=== PATIENT | male | born 1970 | race Caucasian/White ===

== ENCOUNTER 2017-01-14 10:19 | Inpatient (IN) | payer OTHER ==
[~2017-01-14] VITALS: Ht 177.8 cm; Wt 111.2 kg
[2017-02-26] VITALS (11 sets, daily range): BP systolic 108–149; BP diastolic 60–86; PULSE 53–83; TEMP 97.9–98.2
[2017-02-26] MEDS ORDERED: ASPIRIN 81M81 MG/TA2 PO (08:16)
[2017-02-26] MEDS ORDERED: LIPITOR20 MG PO (08:18)
[2017-02-26] MEDS ORDERED: VITAMIN C500 MG PO (08:20)
[2017-02-26] MEDS ORDERED: FOLIC ACID0.4 MG PO (08:20)
[2017-02-26] MEDS ORDERED: FERROUS FUMARA324 MG PO (08:21)
[2017-02-27] VITALS (7 sets, daily range): BP systolic 106–9127; BP diastolic 60–70; PULSE 67–86; TEMP 97.6–98.4
[2017-02-27 07:04] LABS: HEMATOCRIT 35.4 % (42.0-52.0)
[2017-02-28 04:00] VITALS: BP 129/62; PULSE 86; TEMP 98.2
[2017-02-28 08:09] VITALS: BP 117/70; PULSE 92; TEMP 98.6
[2017-02-28 12:19] VITALS: BP 122/65; PULSE 78; TEMP 98.4
[2017-02-28 16:06] LABS: PH 5 (5-8); SQUAMOUS EPITHELIAL None Seen /hpf; URINE APPEARANCE Cloudy; URINE BACTERIA None Seen /hpf; URINE BILIRUBIN Negative (NEGATIVE); URINE BLOOD 3+ (NEGATIVE); URINE COLOR Yellow; URINE GLUCOSE Negative (NEGATIVE); URINE KETONE Negative (NEGATIVE); URINE RBC >50 /hpf; URINE UROBILINOGEN Negative (NEGATIVE)
[2017-02-28 16:13] VITALS: BP 146/88; PULSE 88; TEMP 98.4
[2017-02-28 22:42] VITALS: BP 131/68; PULSE 87; TEMP 98.2
[2017-03-01 01:36] VITALS: BP 141/58; PULSE 77; TEMP 98
[2017-03-01 04:56] VITALS: BP 90/73; PULSE 78; TEMP 98.3
[2017-03-01 08:00] VITALS: BP 147/82; PULSE 99; TEMP 98.2
== END 2017-03-01 10:30 | disposition home or self-care (01) | DRG 470 ==
LOC: JCC 02-26 06:56
PROVIDERS: Orthopaedic Surgery; Urology
PROC: 0SR90JA Replacement of Right Hip Joint with Synthetic Substitute, Uncemented, Open Approach (ICD-10-PCS; principal; 2017-02-26 10:30)
DX: M16.7 Other unilateral secondary osteoarthritis of hip (principal); R31.0 Gross hematuria; E78.00 Pure hypercholesterolemia, unspecified; Z86.711 Personal history of pulmonary embolism; F17.220 Nicotine dependence, chewing tobacco, uncomplicated
CPT/HCPCS: A4315; A9284; C1713; C1776; J0690; J1885; J2250; J2270; J2405; J2704; J3010; J7120

== ENCOUNTER → 2017-02-19 | Outpatient (CLI) | payer OTHER ==
[~2017-02-19] MED LIST: ASPIRIN 81M81 MG/TA2 PO; FERROUS FUMARA324 MG PO; FOLIC ACID0.4 MG PO; LIPITOR20 MG PO; VITAMIN C500 MG PO
[2017-02-19 12:26] LABS: HIV 1/2 Antibodies Non-Reactive; HIV-1p24 Antigen Non-Reactive
== END ==
LOC: COL.LAB 10:56
PROVIDERS: Orthopaedic Surgery
DX: Z01.812 Encounter for preprocedural laboratory examination (principal)

== ENCOUNTER 2017-05-01 08:00 | Outpatient (RCR) | payer OTHER | END 2017-05-01 12:00 | LOC: WSPT 08:00 | DX: Z01.818 Encounter for other preprocedural examination (principal); M16.11 Unilateral primary osteoarthritis, right hip; Z96.641 Presence of right artificial hip joint | CPT/HCPCS: G8978-GP; G8979-GP; G8980-GP ==

== ENCOUNTER 2017-07-17 14:05 | Emergency (ER) | payer OTHER ==
[~2017-07-17] VITALS: Ht 175.3 cm; Wt 118.2 kg
[2017-07-17 14:10] VITALS: BP 144/92; TEMP 98
[2017-07-17 15:04] LABS: BASO % 0.7 % (0.0-2.0); EOS # 0.2 (0.0-0.7); EOS % 3.8 % (0-4.0); GRAN # 2.2 (1.4-6.5); GRAN % 49.1 % (42.2-75.2); HEMATOCRIT 44.9 % (42.0-52.0); HEMOGLOBIN 15.6 g/dl (13.5-18.0); LYMPH # 1.2 (1.2-3.4); LYMPH % 27.5 % (20.0-51.0); MEAN CELL VOLUME 91 fl (80.0-100.0); MEAN CORPUSCULAR HEMOGLOBIN 32 pg (27.0-31.0); MEAN CORPUSCULAR HGB CONC 35 g/dl (33.0-37.0); MEAN PLATELET VOLUME 9.2 fl (7.4-10.4); MONO # 0.8 (0.1-0.6); PLATELET COUNT 225 K/mm3 (130-400); RED BLOOD COUNT 4.95 M/mm3 (4.20-5.60); REDCELL DISTRIBUTION WIDTH-CV 13.3 % (11.5-14.5)
[2017-07-17 15:10] LABS: ALANINE AMINOTRANSFERASE 44 U/L (21-72); ALBUMIN 4.5 gm/dL (3.5-5.0); ALKALINE PHOSPHATASE 73 U/L (50-136); ANION GAP 11 mmol/L (7-16); AST,SGOT 42 U/L (15-37); BILIRUBIN,TOTAL 0.7 mg/dL (0.0-1.0); BLOOD UREA NITROGEN 17 mg/dL (9-20); CARBON DIOXIDE 25 mmol/L (22-30); CHLORIDE 102 mmol/L (98-107); CREATININE, serum 1.06 mg/dL (0.66-1.25); GLUCOSE 105 mg/dL (74-106); POTASSIUM 3.7 mmol/L (3.4-5.0); SODIUM 138 mmol/L (137-145); TOTAL PROTEIN 7.2 gm/dL (6.4-8.2)
[2017-07-17 15:20] LABS: PROTHROMBIN TIME 11.7 SECONDS (9.7-12.8)
[2017-07-17 15:34] LABS: TROPONIN-I < 0.012 ng/mL (0.000-0.034)
[2017-07-17 17:15] VITALS: PULSE 88
== END 2017-07-17 16:20 | disposition home or self-care (01) ==
LOC: COL.ER 14:05
PROVIDERS: Physician Assistant
DX: R06.00 Dyspnea, unspecified (principal); F17.220 Nicotine dependence, chewing tobacco, uncomplicated; Z86.711 Personal history of pulmonary embolism; Z79.82 Long term (current) use of aspirin
CPT/HCPCS: J7030; Q9967

== ENCOUNTER → 2017-12-24 | Outpatient (CLI) | payer OTHER | LOC: COL.LAB 09:19 | DX: Z47.1 Aftercare following joint replacement surgery (principal); M25.551 Pain in right hip; Z96.641 Presence of right artificial hip joint ==

== ENCOUNTER 2019-03-05 08:22 | Emergency (ER) | payer OTHER ==
[~2019-03-05] VITALS: Ht 177.8 cm; Wt 117.3 kg
[2019-03-05 08:28] VITALS: TEMP 98
[2019-03-05] MEDS ORDERED: TIAZAC120 MG PO (08:40)
[2019-03-05] MEDS ORDERED: KLONOPIN 0.5MG0.5 MG PO (08:40)
[2019-03-05 08:42] LABS: BASO # 0.1 (0.0-0.2); BASO % 1.1 % (0.0-2.0); EOS # 0.1 (0.0-0.7); EOS % 1.9 % (0-4.0); GRAN # 3.3 (1.4-6.5); GRAN % 52.3 % (42.2-75.2); HEMATOCRIT 47.5 % (42.0-52.0); HEMOGLOBIN 16.9 g/dl (13.5-18.0); LYMPH # 2.1 (1.2-3.4); LYMPH % 33.2 % (20.0-51.0); MEAN CELL VOLUME 89 fl (80.0-100.0); MEAN CORPUSCULAR HEMOGLOBIN 32 pg (27.0-31.0); MEAN CORPUSCULAR HGB CONC 36 g/dl (33.0-37.0); MEAN PLATELET VOLUME 9.1 fl (7.4-10.4); MONO # 0.7 (0.1-0.6); MONO % 11.2 % (1.7-9.3); PLATELET COUNT 275 K/mm3 (130-400); RED BLOOD COUNT 5.33 M/mm3 (4.20-5.60); REDCELL DISTRIBUTION WIDTH-CV 11.9 % (11.5-14.5)
[2019-03-05] MEDS ORDERED: XARELTO20 MG PO (08:45)
[2019-03-05] MEDS ORDERED: HCTZ 25MG TAB25 MG PO (08:46)
[2019-03-05 08:47] LABS: INR 1.7 (0.8-3.0); PROTHROMBIN TIME 19.7 SECONDS (9.7-12.8)
[2019-03-05] MEDS ORDERED: ANDROGEL1.62PKT2 PO (08:48)
[2019-03-05 08:57] LABS: ALANINE AMINOTRANSFERASE 26 U/L (21-72); ALBUMIN 4.8 gm/dL (3.5-5.0); ALKALINE PHOSPHATASE 52 U/L (50-136); ANION GAP 12 mmol/L (7-16); AST,SGOT 31 U/L (15-37); BILIRUBIN,TOTAL 0.6 mg/dL (0.0-1.0); BLOOD UREA NITROGEN 18 mg/dL (9-20); CALCIUM 9.6 mg/dL (8.4-10.2); CARBON DIOXIDE 28 mmol/L (22-30); CHLORIDE 101 mmol/L (98-107); CREATININE, serum 1.08 (0.66-1.25); GLUCOSE 95 mg/dL (74-106); LIPASE 137 U/L (23-300); POTASSIUM 3.8 mmol/L (3.4-5.0); SODIUM 141 mmol/L (137-145); TOTAL PROTEIN 7.6 gm/dL (6.4-8.2)
[2019-03-05 09:09] LABS: TROPONIN-I < 0.012 ng/mL (0.000-0.035)
[2019-03-05 12:50] VITALS: BP 123/78; PULSE 72
== END 2019-03-05 12:50 | disposition home or self-care (01) ==
LOC: COL.ER 08:22
PROVIDERS: Emergency Medicine
DX: R06.02 Shortness of breath (principal)
CPT/HCPCS: J7030; Q9967